=== PATIENT | female | born 1990 | race African-American/Black ===

== ENCOUNTER 2019-08-25 08:59 | Emergency (ER) | payer SELFPAY ==
[~2019-08-25] VITALS: Ht 157.5 cm; Wt 57.6 kg
[2019-08-25 09:07] VITALS: BP 117/82
--- NOTE | 2019-08-25 09:11 | NUR ---
ED Nurse Note: Patient walked in to ER from home due to abdominal pain 01/30, N/V/D since Friday. pt aao x4 and ambulatory. calm and cooperative but gramicing for pain. no cardiac or pulmonary distress noted at this moment. pt able to provide urine sample and changed to gown. pt reported having watery diarrhea x2 this morning.
--- NOTE | 2019-08-25 09:17 | Emergency Room Report ---
History of Present Illness General Chief Complaint: Abdominal Pain Source: Patient Present Illness HPI Patient is a 29-year-old female denies any significant past medical history who presents to the ER complaining of abdominal pain, nausea, vomiting and diarrhea for the past 2 days. Patient complains of nonbilious nonbloody emesis as well as nonbloody loose stools. She denies any documented fevers but states that she felt warm yesterday and has occasional chills. She denies any chest pain or shortness of breath. She denies any recent travel. 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 She denies getting her influenza vaccine this year Allergies: Coded Allergies: No Known Allergies (Unverified , 08/25/19) Patient History Past Medical History: none Past Surgical History: none Social History: Reports: smoking Now: No Nursing Documentation-[facility] Past Medical History: No Stated History Review of Systems All Other Systems: negative except mentioned in HPI Physical Exam Vital Signs Date Time Temp Pulse Resp B/P (MAP) Pulse Ox O2 Delivery O2 Flow Rate FiO2 08/25/19 09:02 98.2 82 17 117/82 (94) 99 Room Air Sp02 EP Interpretation: reviewed, normal General Appearance: no apparent distress, alert, GCS 15, non-toxic Head: normocephalic, atraumatic Eyes: bilateral eye normal inspection, bilateral eye PERRL ENT: hearing grossly normal, no angioedema, normal voice, other - Dry oral mucosa Neck: full range of motion, supple/symm/no masses Respiratory: chest non-tender, lungs clear, normal breath sounds, speaking full sentences Cardiovascular #1: regular rate, rhythm, no edema Cardiovascular #2: 2+ carotid (R), 2+ carotid (L), 2+ radial (R), 2+ radial (L) , 2+ dorsalis pedis (R), 2+ dorsalis pedis (L) Gastrointestinal: normal bowel sounds, soft, non-distended, no guarding, no rebound, other - Mild diffuse abdominal tenderness Rectal: deferred Genitourinary: normal inspection, no CVA tenderness Musculoskeletal: back normal, normal range of motion, calf tenderness, gait/ station normal, non-tender Neurologic: alert, motor strength/tone normal, oriented x3, sensory intact, responsive, speech normal Psychiatric: judgement/insight normal, memory normal, mood/affect normal, no suicidal/homicidal ideation Skin: no rash Lymphatic: no adenopathy Medical Decision Making Diagnostic Impression: Primary Impression: Gastroenteritis ER Course Patient given 2 L of IV fluids as well as Zofran and Pepcid. She feels improved. CT demonstrates no acute abnormalities. After discussing risks and benefits of further diagnostics, treatment plans, as well as indications for and risks of admission, the patient is agreeable to being discharged home. I have explained that their evaluation and treatment in the emergency department today is an important step towards them achieving better health but that their evaluation today is not intended to replace further evaluation and treatment by a physician in their local clinic. I have explained that while the current findings suggest no immediate life threatening emergency they will require further evaluation and treatment by a physician of their choice in their area. They understand that it will be necessary for them to review the final reports of their ED visit with their clinic physician. We have reviewed indications for return to the Emergency Department. I have explained that additional time may need to pass and/or additional testing as an outpatient may be necessary before a definitive diagnosis can be made. They tell me they are willing to follow up as instructed within the timeframe I recommend. They appear to understand what we discussed. Additionally they understand that if they are unable to be seen by an outpatient physician they are welcome, and in fact should, return to the Emergency Department for a repeat evaluation. The patient is stable at time of discharge. Last Vital Signs Date Time Temp Pulse Resp B/P (MAP) Pulse Ox O2 Delivery O2 Flow Rate FiO2 08/25/19 09:07 98.2 78 17 117/82 99 Room Air Disposition: HOME, SELF-CARE Condition: Stable Scripts Famotidine* (Pepcid 20mg tablet*) 20 Mg Tablet 20 MG ORAL DAILY, #30 TAB 0 Refills Prov: Anabell Bautista M.D. 08/25/19 Ondansetron (Zofran) 4 Mg Tablet 4 MG ORAL Q6H PRN for Nausea & Vomiting, #10 TAB Prov: Anabell Bautista M.D. 08/25/19 Additional Instructions: Patient discharged in stable improved condition with outpatient follow-up and strict return precautions Anabell Bautista M.D. Aug 25, 2019 09:17
[2019-08-25 10:23] LABS: ANION GAP 14 mmol/L (5-15); BLOOD UREA NITROGEN 10 mg/dL (7-18); CALCIUM 8.7 MG/DL (8.5-10.1); CARBON DIOXIDE 24 MMOL/L (21-32); CHLORIDE 103 MMOL/L (98-107); POTASSIUM 3.6 MMOL/L (3.5-5.1); SODIUM 141 MMOL/L (136-145)
[2019-08-25 10:29] LABS: BASOPHILS % (AUTO) 1.4 % (0.0-2.0); HEMATOCRIT 42.3 % (37.0-47.0); HEMOGLOBIN 14.7 G/DL (12.0-16.0); LYMPHOCYTES % (AUTO) 34.7 % (20.0-45.0); MEAN CORPUSCULAR VOLUME 87 FL (80-99); MONOCYTES % (AUTO) 10.6 % (1.0-10.0); NEUTROPHILS % (AUTO) 52.3 % (45.0-75.0); PLATELET COUNT 198 K/UL (150-450); RED BLOOD COUNT 4.86 M/UL (4.20-5.40); RED CELL DISTRIBUTION WIDTH 11.3 % (11.6-14.8); WHITE BLOOD COUNT 3.7 K/UL (4.8-10.8)
[2019-08-25 10:30] LABS: APPEARANCE,URINE CLOUDY; BILIRUBIN, URINE 1+ (NEGATIVE); GLUCOSE, URINE (UA) NEGATIVE (NEGATIVE); KETONES,URINE 3+ (NEGATIVE); LEUKOCYTE ESTERASE ,URINE 1+ (NEGATIVE); NITRITE,URINE NEGATIVE (NEGATIVE); PH,URINE 5 (4.5-8.0); PROTEIN,URINE 2+ (NEGATIVE); UROBILINOGEN,URINE NORMAL MG/DL (0.0-1.0)
[2019-08-25] MEDS ORDERED: Pantoprazole Inj IVP ONE (10:30)
[2019-08-25 10:34] LABS: ALANINE AMINOTRANSFERASE 39 U/L (12-78); ALBUMIN 3.6 G/DL (3.4-5.0); ALBUMIN/GLOBULIN RATIO 0.9 (1.0-2.7); ALKALINE PHOSPHATASE 65 U/L (46-116); ASPARTATE AMINO TRANSFERASE 36 U/L (15-37); BILIRUBIN,TOTAL 0.2 MG/DL (0.2-1.0)
[2019-08-25 10:40] LABS: COLOR,URINE YELLOW
[2019-08-25 11:07] VITALS: BP 121/86
--- NOTE | 2019-08-25 11:13 | NUR ---
ED Nurse Note: pt taken to CT in stable condition.
--- NOTE | 2019-08-25 11:24 | NUR ---
ED Nurse Note: pt came back from CT scan in stable condition.
--- NOTE | 2019-08-25 12:01 | Diagnostic Imaging Report ---
INDICATION: Abdominal pain TECHNIQUE: Continuous helical transaxial imaging of the abdomen and pelvis was obtained from the lung bases to the pubic symphysis. No intravenous contrast was administered. Coronal 2-D reformats were also obtained. Automatic Exposure Control was utilized. Total Dose length Product (DLP): 182.[address] Dose Index Volume (CTDIvol): 3.7 mGy Comparison: none FINDINGS: Lungs: The visualized lung bases are clear. Liver: Unremarkable Gallbladder/biliary system: There is suggestion of gallbladder sludge with slight increased density. The gallbladder is contracted and not evaluated well on this study. No definite biliary ductal dilatation is seen.. Spleen: Unremarkable Pancreas: Visualization is limited given the lack of intravenous and oral contrast and the particular body habitus of the patient where there is very little intra-abdominal fat. Kidneys/Bladder: No definite stone or hydronephrosis are identified. The urinary bladder is unremarkable.. Adrenal glands: Unremarkable Bowel: Unremarkable. Appendix not seen. No secondary signs. Aorta/IVC: Unremarkable Peritoneum: There is no free fluid.IUD noted. Bones: Unremarkable IMPRESSION: No acute findings. IUD noted. Limited evaluation. Note: Evaluation of solid organs is limited on non contrast imaging. The CT scanner at [facility] is accredited by the [employer] and the scans are performed using dose optimization techniques as appropriate to a performed exam including Automatic Exposure control.
[2019-08-25] MEDS ORDERED: FAMOTIDINE20 MG ORAL (12:08)
[2019-08-25] MEDS ORDERED: ZOFRAN4 M1 ORAL (12:08)
[2019-08-25 12:30] VITALS: BP 124/81
--- NOTE | 2019-08-25 12:30 | NUR ---
ER DISCHARGE NOTE: Patient is cleared to be discharged per ERMD, pt is aox4, on room air, with stable vital signs as documented. pt was given dc and prescription instructions, pt was able to verbalize understanding, pt id band and iv site removed without complications. pt is able to ambulate with steady gait. pt took all belongings.
== END 2019-08-25 12:30 | disposition home or self-care (01) ==
LOC: EMR 09:37
DX: K52.9 Noninfective gastroenteritis and colitis, unspecified (principal); F17.200 Nicotine dependence, unspecified, uncomplicated; Z97.5 Presence of (intrauterine) contraceptive device
CPT/HCPCS: 36415; 74176; 80053; 81003; 81025; 83690; 83735; 85025; 86710; 96361; 96374; 96375; 99284; C9113; J2405; J7030